=== PATIENT | female | born 1965 | race Caucasian/White ===

== ENCOUNTER 2016-11-26 08:31 | Emergency (ER) | payer BC ==
[2016-11-26] MEDS ORDERED: SODIUM CHLORIDE 0.9% 1,000 ML ONE (09:31)
[2016-11-26] MEDS ORDERED: PANTOPRAZOLE 40 MG VIAL IV ONE ×2 (09:32→09:35)
[2016-11-26] MEDS ORDERED: ONDANSETRON 4 MG VIAL ONE (09:35)
== END 2016-11-26 17:45 | disposition other institution (70) ==
LOC: ER 09:26
DX: K92.2 Gastrointestinal hemorrhage, unspecified (principal); D64.9 Anemia, unspecified; K92.0 Hematemesis; N17.9 Acute kidney failure, unspecified; Z79.01 Long term (current) use of anticoagulants; I10 Essential (primary) hypertension; E11.9 Type 2 diabetes mellitus without complications
CPT/HCPCS: 36415; 71010; 74000; 80053; 81001; 82274; 82947; 83735; 85025; 85610; 85730; 86850; 86900; 86901; 87088; 93005; 96361; 96374; 96376